=== PATIENT | female | born 1960 | race Caucasian/White ===

== ENCOUNTER → 2017-09-06 | Outpatient (CLI) | payer MEDICAID | LOC: CIMAGING 11:45 | PROVIDERS: ATTEND Family Medicine | DX: M25.562 Pain in left knee (principal); R42 Dizziness and giddiness; F95.9 Tic disorder, unspecified; G25.0 Essential tremor; S09.90XA Unspecified injury of head, initial encounter | CPT/HCPCS: 73564-PO ==

== ENCOUNTER → 2017-10-14 | Outpatient (CLI) | payer MEDICAID ==
--- NOTE | 2017-10-18 11:31 | CPEEG ---
[f rep st] ELECTROENCEPHALOGRAM DATE OF STUDY: 10/14/2017 INTERPRETATION: Essentially normal EEG during wakefulness and sleep. There were no potentially epil eptogenic abnormalities present during the recording. The background activity did contain prominent beta frequency activity. This can be a normal physiolo gic variant or related to medication effect (GABAergic medications). REPORT: This EEG contains 9-10 Hz alpha activity over the posterior head regions. There was promine nt beta frequency activity that was generalized in distribution throughout the study. There was no a bnormal activation at rest, during photic stimulation or hyperventilation. The patient did have inte rmittent drowsy bursts composed of generalized theta frequency activity, maximal over the anterior he ad regions. The patient went on to fall into a more sustained sleep during the study. There was no abnormal activation during drowsiness, sleep, or during times of arousal. /[id number]/MODL
== END ==
LOC: FCPNEURO 09:00
PROVIDERS: ATTEND Psychiatry & Neurology Neurology
DX: R40.1 Stupor (principal)

== ENCOUNTER 2018-01-26 08:24 | Day surgery (SDC) | payer MEDICAID ==
[2018-01-26] MEDS ORDERED: LIDOCAINE 1% 300 MG/30 ML SDV SC ONE (08:27)
--- NOTE | 2018-01-26 08:57 | PDHPUP ---
History & Physical Update H&P update statement: This history and physical update is based on an assessment of the patient which was completed after admission or registration (within 24 hours), but prior to the surgery/procedure. H&P update: H&P reviewed & patient examined, no change in patient's condition since H&P completed
--- NOTE | 2018-01-26 09:56 | CPIP ---
DATE OF PROCEDURE: 01/26/2018 REPORT TITLE: Implantation summary for [employer] Confirm. INDICATIONS: The patient is a pleasant 57-year-old female with a history of syncope. Previous outpa tient potline monitor was unrevealing. She is referred for implantation of a [employer] Confirm with a history of cryptogenic syncope. PROCEDURE: Implantation of a [facility] Confirm. TECHNIQUE: Following informed consent and in the fasting state, the patient was brought to the [facility]. The left chest was prepped and draped in usual sterile fashion. The 4th intercostal space was ident ified by landmarks. 2% lidocaine was infiltrated in the skin overlying the 4th intercostal space. A 1 cm incision was then made. The [facility] Confirm was then injected underneath the skin and the wou nd closed with 2 fran. There were no complications. DEVICE INFORMATION: The device is a [employer] Confirm, reference #[id number], serial #[id number]. COMPLICATIONS: None. DISPOSITION: The patient will be recovered in the CVC and discharged home later today. /[id number]/MODL
== END 2018-01-26 12:09 | disposition home or self-care (01) ==
LOC: FCATH 08:24
PROVIDERS: ATTEND Internal Medicine Cardiovascular Disease
PROC: 0JH632Z Insertion of Monitoring Device into Chest Subcutaneous Tissue and Fascia, Percutaneous Approach (ICD-10-PCS; principal; 2018-01-26)
DX: R55 Syncope and collapse (principal)
CPT/HCPCS: C1764

== ENCOUNTER 2018-03-28 10:22 | Emergency (ER) | payer MEDICAID ==
[2018-03-28] MEDS ORDERED: NS 1,000 ML IV ONE (10:53)
[2018-03-28] MEDS ORDERED: ONDANSETRON 4 MG/2 ML VIAL IVP ONE (10:53)
[2018-03-28] MEDS ORDERED: HYOSCYAMINE SULFATE 0.125 MG TAB PO ONE ×2 (12:14→12:43)
[2018-03-28] MEDS ORDERED: MAG HYDROX/AL HYDROX/SIMETH 30 ML UDCUP PO ONE (12:44)
--- NOTE | 2018-03-28 12:46 | EDPHY ---
H & P Stated Complaint: nausea, "upset stomach" for 1 week, feels constipated Time Seen by Provider: 03/28/18 10:43 HPI/ROS: This patient presents with GI complaints of crampy generalized abdominal pain associated with mild nausea and acid reflux symptoms described as belching followed by burning sensation in her esophagus. She also reports some constipation but is still able to have bowel movements. She admits some associated bloating in her belly and at times the discomfort peak sat 8/10 and sharp in nature. She is accompanied by her who brought her in for evaluation. She reports that the symptoms and worsening if she eats and notes no other exacerbating factors. ROS: Constitutional: No fevers or chills. HEENT: No URI symptoms Pulmonary: No cough shortness of breath Cardiovascular: No lightheadedness GI: She denies any dark tarry stools. No nausea vomiting. : No dysuria frequency urgency Integumentary: No rash or diaphoresis Psychiatric: She admits being under lot of stress during holidays and being more"busy"than normal 10 point review of symptoms is performed and otherwise negative with exception of pertinent positives and negatives listed in HPI and ROS Source: Patient Exam Limitations: No limitations - Medical/Surgical History Hx Diabetes: No Other PMH: central tremors, gerd, gall bladder - Social History Smoking Status: Never smoked Alcohol Use: None Drug Use: None - Physical Exam Exam: General Appearance: Alert, no distress. Eyes: Pupils equal and round no pallor or injection. ENT, Mouth: Mucous membranes moist. Respiratory: There are no retractions, lungs are clear to auscultation. Cardiovascular: Regular rate and rhythm. Gastrointestinal: Hyperactive bowel sounds, soft, generalized tenderness with that is mild. No guarding or rebound. No organomegaly. Back: No CVA tenderness Neurological: GCS 15. Skin: Warm and dry, no rashes. Musculoskeletal: Neck is supple nontender. Extremities are symmetrical, full range of motion. Psychiatric: Mood and affect are normal here today. DIFFERENTIAL DIAGNOSIS: After history and physical exam differential diagnosis was considered for constipation, IBS, food intolerance, diverticulitis, Constitutional: Initial Vital Signs Temperature (C) 36.4 C 03/28/18 10:31 Heart Rate 56 L 03/28/18 10:31 Respiratory Rate 18 03/28/18 10:31 Blood Pressure 175/78 H 03/28/18 10:31 O2 Sat (%) 98 03/28/18 10:31 O2 Delivery Mode Room Air Allergies/Adverse Reactions: acetaminophen [From Tylenol] Allergy (Verified 03/28/18 10:30) adhesive Allergy (Verified 03/28/18 10:29) latex Allergy (Verified 03/28/18 10:29) tuberculin, purified protein deriva [Tuberculin,Purif.Prot.Deriv.] Allergy ( Verified 03/28/18 10:29) bandaids Allergy (Uncoded 03/28/18 10:29) Home Medications: Medication Instructions Recorded Acidophilus 03/28/18 Hyoscyamine Sulfate [Levsin, 0.125 - 0.25 mg SL Q6 PRN #20 tab 03/28/18 Hyomax-Sl 0.125 mg (*)] Nexium 03/28/18 Ondansetron Odt [Zofran Odt] 4 - 8 mg PO Q4PRN PRN #4 tab 03/28/18 Propranolol HCl 03/28/18 Medical Decision Making ED Course/Re-evaluation: IV normal saline bolus Levsin sublingual and Toradol IV with relief of discomfort Studies: POC CBC-normal, i-STAT basic metabolic panel is normal, urinalysis is normal Discussion: Patient likely with IBS type symptoms associated with her stress. Counseled patient has been regarding this. No red flag findings today. We ruled out UTI. Doubt inflammatory condition given normal CBC and lack of fevers. Plan will be to go home with Levsin if needed for discomfort and treatment [id number] for mild constipation. She understands need to return should she develop any significant worsening despite treatment plan. - Data Points Medications Given: Discontinued Medications Al Hydroxide/Mg Hydroxide (Maalox Susp) 30 ml PO EDNOW ONE Stop: 03/28/18 12:45 Last Admin: 03/28/18 12:55 Dose: 30 ml Hyoscyamine Sulfate (Levsin, Hyomax-Sl) 0.125 mg PO EDNOW ONE Stop: 03/28/18 12:15 Last Admin: 03/28/18 12:26 Dose: 0.125 mg Hyoscyamine Sulfate (Levsin, Hyomax-Sl) 0.125 mg PO EDNOW ONE Stop: 03/28/18 12:44 Last Admin: 03/28/18 12:55 Dose: 0.125 mg Sodium Chloride (Ns) 1,000 mls @ 0 mls/hr IV EDNOW ONE; Wide Open PRN Reason: Protocol Stop: 03/28/18 10:54 Last Admin: 03/28/18 11:29 Dose: 1,000 mls Ondansetron HCl (Zofran) 4 mg IVP EDNOW ONE Stop: 03/28/18 10:54 Last Admin: 03/28/18 11:29 Dose: 4 mg Point of Care Test Results: CBC CBC Collection Date 03/28/18 CBC Collection Time 11:00 WBC 7.5 RBC 4.5 HGB 15.2 HCT 42.1 PLT 257 Neut # 5.4 Neut 72.7 LYMPH # 1.6 LYMPH 21.3 Other WBC # 0.5 Other WBC 6.0 MCV 93.6 Chemistry 03/28/18 03/28/18 11:54 11:06 POC Sodium 148 mEq/L H mEq/L 147 mEq/L H mEq/L (135-145) (135-145) POC Potassium 3.3 mEq/L mEq/L 3.2 mEq/L L mEq/L (3.3-5.0) (3.3-5.0) POC Chloride 103.0 mEq/L mEq/L 102.0 mEq/L mEq/L (97-110) (97-110) POC Total CO2 25 mEq/L mEq/L 25 mEq/L mEq/L (22-31) (22-31) POC BUN 13 mg/dL mg/dL 13 mg/dL mg/dL (7-23) (7-23) POC Creatinine 0.8 mg/dL mg/dL 0.8 mg/dL mg/dL (0.6-1.0) (0.6-1.0) POC Glucose 98 mg/dL mg/dL 102 mg/dL H mg/dL (70-100) (70-100) POC Calcium 9.8 mg/dL mg/dL 9.7 mg/dL mg/dL (8.5-10.4) (8.5-10.4) Urine Dip Collection Date 03/28/18 Collection Time 11:05 Specific Hawks (1.002-1.030) 1.020 PH (5.0-7.5) 6.0 Leukocytes (Negative) Negative Nitrites (Negative) Negative Protein (Negative) Negative Glucose (Negative) Negative Ketones (Negative) Negative Urobilnogen (0.2-1.0 EU) 0.2 Bilirubin (Negative) Negative Blood (Negative) Negative Departure - Departure Disposition: Home, Routine, Self-Care Clinical Impression: Generalized abdominal cramping Condition: Good Instructions: Acute Abdominal Pain (DC) Additional Instructions: Diagnosis: Generalized crampy abdominal pain 2. Nausea Plan: Levsin if needed for crampy discomfort Craig diet to feel improved Mild exercise to diminish stress Daily relaxation such as hot bath Maalox in addition as needed Zofran for nausea if needed Follow up primary care physician for any ongoing symptoms Return for any significant worsening despite treatment plan Referrals: Fany Whitfield MD [Primary Care Provider] - As per Instructions Prescriptions: Hyoscyamine Sulfate [Levsin, Hyomax-Sl 0.125 mg (*)] 0.125 - 0.25 mg SL Q6 PRN # 20 tab PRN Reason: abdominal cramping Ondansetron Odt [Zofran Odt] 4 - 8 mg PO Q4PRN PRN #4 tab PRN Reason: Vomiting
[2018-03-28 12:47] VITALS: BP 121/75
== END 2018-03-28 13:06 | disposition home or self-care (01) ==
LOC: CED 10:22
DX: R10.0 Acute abdomen (principal); R11.0 Nausea; K21.9 Gastro-esophageal reflux disease without esophagitis; E86.9 Volume depletion, unspecified
CPT/HCPCS: 80048-PO; 96374; J2405

== ENCOUNTER 2018-07-25 06:23 | Emergency (ER) | payer MEDICAID ==
[2018-07-25] MEDS ORDERED: HYDROmorphONE/DILAUDID 2 MG/ML INJ IVP ONE (06:57)
[2018-07-25] MEDS ORDERED: NS 1,000 ML IV ONE (06:57)
--- NOTE | 2018-07-25 06:59 | EDPHY ---
H & P Stated Complaint: ABD PAIN, CRAMPING, BLOODY STOOL BRIGHT RED Time Seen by Provider: 07/25/18 06:47 HPI/ROS: CHIEF COMPLAINT: Abdominal pain and cramping and now blood in stool HISTORY OF PRESENT ILLNESS: The patient is a 57-year-old female who states that she has had about 10 days worth of abdominal cramping and constipation. Today she noticed bright red blood per rectum. She has had hemorrhoids in the past. She states that it is painful to defecate. No urinary complaints. No vaginal complaints. No fevers. No nausea or vomiting. Severity: Moderate Modifying factors: None REVIEW OF SYSTEMS: Constitutional: denies: chills, fever, recent illness, recent injury EENTM: denies: blurred vision, double vision, nose congestion Respiratory: denies: cough, shortness of breath Cardiac: denies: chest pain, irregular heart rate, lightheadedness, palpitations Gastrointestinal/Abdominal: See HPI Genitourinary: denies: dysuria, frequency, hematuria, pain Musculoskeletal: denies: joint pain, muscle pain Skin: denies: lesions, rash, jaundice, bruising Neurological: denies: headache, numbness, paresthesia, tingling, dizziness, weakness Hematologic/Lymphatic: denies: blood clots, easy bleeding, easy bruising Immunologic/allergic: denies: HIV/AIDS, transplant 10 systems reviewed and negative except as noted EXAM: GENERAL: Well-appearing, well-nourished and in no acute distress. HEAD: Atraumatic, normocephalic. EYES: Pupils equal round and reactive to light, extraocular movements intact, sclera anicteric, conjunctiva are normal. ENT: TMs normal, nares patent, oropharynx clear without exudates. Moist mucous membranes. NECK: Normal range of motion, supple without lymphadenopathy or JVD. LUNGS: Breath sounds clear to auscultation bilaterally and equal. No wheezes rales or rhonchi. HEART: Regular rate and rhythm without murmurs, rubs or gallops. ABDOMEN: Soft, nontender, normoactive bowel sounds. No guarding, no rebound. No masses appreciated. : Anoscope performed, maroon color clot and stool and internal hemorrhoid at about 6:00 o'clock. Not currently bleeding. BACK: No CVA tenderness, no spinal tenderness, step-offs or deformities EXTREMITIES: Normal range of motion, no pitting or edema. No clubbing or cyanosis. NEUROLOGICAL: Cranial nerves II through XII grossly intact. Normal speech, normal gait. 5/5 strength, normal movement in all extremities, normal sensation , normal reflexes PSYCH: Normal mood, normal affect. SKIN: Warm, dry, normal turgor, no visible rashes or lesions. 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 - Family History Significant Family History: No pertinent family hx - Social History Smoking Status: Never smoked Alcohol Use: None Constitutional: Initial Vital Signs Temperature (C) 36.3 C 07/25/18 06:26 Heart Rate 65 07/25/18 06:26 Respiratory Rate 16 07/25/18 06:26 Blood Pressure 126/85 H 07/25/18 06:26 O2 Sat (%) 97 07/25/18 06:26 O2 Delivery Mode Room Air Allergies/Adverse Reactions: acetaminophen [From Tylenol] Allergy (Verified 03/28/18 10:30) adhesive Allergy (Verified 03/28/18 10:29) latex Allergy (Verified 03/28/18 10:29) tuberculin, purified protein deriva [Tuberculin,Purif.Prot.Deriv.] Allergy ( Verified 03/28/18 10:29) bandaids Allergy (Uncoded 03/28/18 10:29) Home Medications: Medication Instructions Recorded Acidophilus 03/28/18 Hyoscyamine Sulfate [Levsin, 0.125 - 0.25 mg SL Q6 PRN #20 tab 03/28/18 Hyomax-Sl 0.125 mg (*)] Nexium 03/28/18 Ondansetron Odt [Zofran Odt] 4 - 8 mg PO Q4PRN PRN #4 tab 03/28/18 Propranolol HCl 03/28/18 Amoxicillin/Clavulanate Pot 875 mg PO BID #20 tab 07/25/18 [Augmentin 875Mg] Medical Decision Making - Diagnostics Imaging: Discussed imaging studies w/ at home independent call center agent Radiologist ED Course/Re-evaluation: Patient has mild diverticulitis on CT scan. We discussed treatment for this with Augmentin as well as for the small hemorrhoid. We discussed diet and over- the-counter constipation medication. She and her feel comfortable with this plan and are eager to go home. Her abdominal exam remains benign. She declines pain medication prescription. Differential Diagnosis: Partial list of the Differential diagnosis considered include but were not limited to; constipation, diverticulitis, hemorrhoid and although unlikely based on the history and physical exam, I also considered colitis, fissure, cancer. I discussed these differential diagnoses and the plan with the patient as well as the usual and expected course. The patient understands that the diagnosis is provisional and that in medicine we are not always correct and that further workup is often warranted. Usual and customary warnings were given. All of the patient's questions were answered. The patient was instructed to return to the emergency department should the symptoms at all worsen or return, otherwise to followup with the physician as we discussed. - Data Points Laboratory Results: Laboratory Results 07/25/18 06:48 07/25/18 06:48 Medications Given: Discontinued Medications Amoxicillin/Clavulanate Potassium (Augmentin 875mg) 875 mg PO EDNOW ONE PRN Reason: Protocol Stop: 07/25/18 08:32 Last Admin: 07/25/18 08:34 Dose: 875 mg Hydromorphone HCl (Dilaudid) 0.5 mg IVP EDNOW ONE Stop: 07/25/18 06:58 Last Admin: 07/25/18 07:03 Dose: 0.5 mg Sodium Chloride (Ns) 1,000 mls @ 0 mls/hr IV EDNOW ONE; Wide Open PRN Reason: Protocol Stop: 07/25/18 06:58 Last Admin: 07/25/18 07:03 Dose: 1,000 mls Departure - Departure Disposition: Home, Routine, Self-Care Clinical Impression: Diverticulitis large intestine w/o perforation or abscess w/bleeding Condition: Fair Instructions: Diverticulitis (ED), Diverticulitis Diet (ED) Referrals: Soal Chadwick DO [Primary Care Provider] - As per Instructions Prescriptions: Amoxicillin/Clavulanate Pot [Augmentin 875Mg] 875 mg PO BID #20 tab
[2018-07-25 07:10] LABS: PLATELET COUNT 391 10^3/uL (150-400)
[2018-07-25] MEDS ORDERED: IOPAMIDOL (ISOVUE-300) 100 ML BTL ONE (07:31)
[2018-07-25] MEDS ORDERED: AMOXICILLIN/CLAVULANATE POT 875/125 MG TAB PO ONE (08:31)
[2018-07-25 08:40] VITALS: BP 112/68
== END 2018-07-25 08:46 | disposition home or self-care (01) ==
PROC: 0DJD8ZZ Inspection of Lower Intestinal Tract, Via Natural or Artificial Opening Endoscopic (ICD-10-PCS; principal; 2018-07-25)
DX: K57.32 Diverticulitis of large intestine without perforation or abscess without bleeding (principal); K64.8 Other hemorrhoids; E86.9 Volume depletion, unspecified
CPT/HCPCS: 96374; J1170; Q9967

== ENCOUNTER 2018-07-29 08:50 | Inpatient (IN) | payer MEDICAID ==
[2018-07-29] MEDS ORDERED: NS 1,000 ML IV ONE (09:20)
[2018-07-29 10:27] LABS: PLATELET COUNT 329 10^3/uL (150-400)
[2018-07-29] MEDS ORDERED: IOPAMIDOL (ISOVUE-300) 100 ML BTL ONE (11:15)
[2018-07-29] MEDS ORDERED: levOFLOXACIN 500 MG/DEXTROSE 100 ML IV ONE (12:34)
[2018-07-29] MEDS ORDERED: HYDROmorphONE/DILAUDID 2 MG/ML INJ IVP ONE (12:34)
[2018-07-29] MEDS ORDERED: HYDROmorphONE/DILAUDID 2 MG TAB PO PRN (13:31)
[2018-07-29] MEDS ORDERED: ACETAMINOPHEN 325 MG TAB PO PRN (13:31)
[2018-07-29] MEDS ORDERED: ONDANSETRON DISINTEGRATING 4 MG TAB PO PRN (13:31)
[2018-07-29] MEDS ORDERED: ONDANSETRON 4 MG/2 ML VIAL IVP PRN (13:31)
[2018-07-29] MEDS: NS 1,000 ML IV SCH (13:45)
[2018-07-29] MEDS ORDERED: PANTOPRAZOLE SODIUM 40 MG TAB PO SCH (13:45)
--- NOTE | 2018-07-29 13:59 | GHP ---
[f rep st] HISTORY AND PHYSICAL DATE OF ADMISSION: 07/29/2018 CHIEF COMPLAINT: Abdominal pain. HISTORY OF PRESENT ILLNESS: The patient is a 57-year-old female, who presented to the Emergency Room approximately 4 days prior with complaints of abdominal pain and cramping. She was evaluated via CT scan and diagnosed with diverticulitis. She was discharged home on oral Augmentin. Since that time , the patient has had some continued abdominal pain, as well as underlying mild nausea. She has not been able to tolerate regular food and does not feel as though she is improving. She presented to [facility] Emergency Room today with continued complaints. She denies any urinary complaints. She denies any vomiting. She denies any chest pain, dyspnea, or shortness of breath. REVIEW OF SYSTEMS: Comprehensive 10-point review of systems is negative other than noted in the HPI. PAST MEDICAL HISTORY: 1. Essential tremor. 2. Gastroesophageal reflux disease. 3. Episode of syncope. PAST SURGICAL HISTORY: Cholecystectomy. FAMILY HISTORY: Non-pertinent. SOCIAL HISTORY: The patient denies any tobacco or alcohol use. ALLERGIES: Tylenol, adhesive, latex, Band-Aids, tuberculin. PHYSICAL EXAM: GENERAL: The patient is alert, no acute distress. VITAL SIGNS: Afebrile at 36.8, p ulse 54, respiratory rate 16, blood pressure is 123/86. She is saturating 95% on room air. HEENT: Normocephalic, atraumatic. Mucosal membranes are moist. Pupils equal, round, reactive to light. NE CK: Supple. RESPIRATORY: Lungs are clear to auscultation bilaterally. No rhonchi or wheezes noted . CARDIOVASCULAR: Regular rate and rhythm. No gallop or murmur appreciated. GASTROINTESTINAL: Ab domen, bowel sounds are positive. Soft. No guarding or rigidity identified. SKIN: Without rashes or lesions. EXTREMITIES: Within normal limits. There is no clubbing or cyanosis noted. NEUROLOGIC : The patient is focally intact. MEDICATIONS: 1. Acidophilus. 2. Nexium. 3. Propranolol. LABORATORY: Within normal limits. IMAGING: CT of the abdomen notes persistent mild acute diverticulitis with no abscesses or obstructi on identified. ASSESSMENT/PLAN: The patient is a 57-year-old female with complaints of continued abdominal pain and discomfort. Was evaluated and diagnosed with: 1. Acute diverticulitis. She did fail outpatient Augmentin, and has been now transitioned to IV Fla gyl and Levaquin. We will continue this in the hospital setting. 2. Pain. Dilaudid has been ordered for the patient for subsequent pain medication. 3. Gastroesophageal reflux disease. Will continue Protonix for her during this hospitalization. 4. Disposition. She will be admitted under observation status. There is potential that the patient could leave in the next 24 hours if her condition improves. /[id number]/MODL
--- NOTE | 2018-07-29 14:14 | EDPHY ---
H & P Stated Complaint: abd pain - Personal History Current Tetanus/Diphtheria Vaccine: Yes Current Tetanus Diphtheria and Acellular Pertussis (TDAP): Yes - Medical/Surgical History Hx Asthma: No Hx Chronic Respiratory Disease: No Hx Diabetes: No Hx Cardiac Disease: No Hx Renal Disease: No Hx Cirrhosis: No Hx Alcoholism: No Hx HIV/AIDS: No Hx Splenectomy or Spleen Trauma: No Other PMH: Essential tremors, gerd, gall bladder removed, implanted HEART MONITOR, diverticulitis, d and c - Social History Smoking Status: Never smoked Time Seen by Provider: 07/29/18 09:19 HPI/ROS: Chief complaint: Abdominal pain History of present illness: This is a 57-year-old female who returns to the emergency department for abdominal pain. She was seen a few days ago in this emergency department and diagnosed with diverticulitis. She was started on Augmentin. She has been taking her Augmentin at home as prescribed but states symptoms persist. She continues to feel unwell. She is having difficulty eating and drinking now. She denies fevers. She denies nausea, vomiting or blood in the stools. She denies urinary symptoms. Review of systems: A 10 point review of systems was obtained and other than described above was negative. (Kong Cole) - Physical Exam Exam: General Appearance: Alert, nontoxic. Eyes: Pupils equal and round no pallor or injection. ENT, Mouth: Mucous membranes moist. Respiratory: There are no retractions, lungs are clear to auscultation. Cardiovascular: Regular rate and rhythm. Gastrointestinal: Bowel sounds present. Abdomen is soft but tender especially in the left lower quadrant. Neurological: Alert and oriented. Skin: Warm and dry, no rashes. Musculoskeletal: Extremities are symmetrical, full range of motion. Psychiatric: Patient is oriented X 3, there is no agitation. (Kong Cole) Constitutional: Initial Vital Signs Temperature (C) 36.3 C 07/29/18 09:05 Heart Rate 50 L 07/29/18 09:05 Respiratory Rate 16 07/29/18 09:05 Blood Pressure 127/84 H 07/29/18 09:05 O2 Sat (%) 97 07/29/18 09:05 O2 Delivery Mode Room Air Allergies/Adverse Reactions: acetaminophen [From Tylenol] Allergy (Verified 07/29/18 13:16) "just intolerant" adhesive Allergy (Verified 07/29/18 13:16) Skin Boils latex Allergy (Verified 07/29/18 13:16) Skin Boils tuberculin, purified protein deriva [Tuberculin,Purif.Prot.Deriv.] Allergy ( Verified 07/29/18 09:05) bandaids Allergy (Uncoded 07/29/18 13:16) Skin Boils Home Medications: Medication Instructions Recorded Esomeprazole Mag Trihydrate 40 mg PO DAILY 03/28/18 [Nexium] Herbals/Supplements -Info Only 1 ea PO DAILY 03/28/18 Propranolol HCl [Inderal 40mg (*)] 40 mg PO TID 03/28/18 Amoxicillin/Clavulanate Pot 875 mg PO BID #20 tab 07/25/18 [Augmentin 875Mg] Naproxen Sodium [Aleve 220 MG (*)] 220 mg PO BID PRN 07/29/18 Medical Decision Making - Diagnostics Imaging: Discussed imaging studies w/ order desk caller Radiologist ED Course/Re-evaluation: Patient is discussed with my secondary supervising physician Dr. Mini Rivera. Patient presents for ongoing pain in the setting of a recent diagnosis of diverticulitis. New CT scan does not show worsening of symptoms or complications such as abscess or perforation. However she appears to be feeling home therapy on oral Augmentin. She has been IV hydrated. She has been started on IV Levaquin and Flagyl. She is admitted to the hospitalist service for further evaluation and care. (Kong Cole) The patient was evaluated and managed by the physician child development assistant. I have reviewed this chart and I agree with the findings and plan of care as documented , as indicated by my signature. I am the secondary supervising physician. ( Mini Rivera) Differential Diagnosis: Included but not limited to diverticulitis, abscess formation, perforation, colitis (Kong Cole) - Data Points Laboratory Results: Laboratory Results 07/29/18 10:05 07/29/18 10:05 Medications Given: Sodium Chloride (Ns) 1,000 mls @ 75 mls/hr IV CONT ANNA Stop: 01/25/19 13:44 Last Admin: 07/30/18 05:20 Dose: 1,000 mls Metronidazole/Sodium Chloride (Flagyl 500 Mg (Premix)) 100 mls @ 100 mls/hr IV Q8HRS ANNA PRN Reason: Protocol Stop: 08/28/18 21:59 Last Admin: 07/30/18 05:14 Dose: 100 mls Levofloxacin/Dextrose (Levaquin 750 Mg (Premix)) 150 mls @ 100 mls/hr IV DAILY ANNA PRN Reason: Protocol Stop: 08/29/18 08:59 Last Admin: 07/30/18 08:14 Dose: 150 mls Oxycodone HCl (Oxycodone Ir) 5 mg PO Q4 PRN PRN Reason: Pain, Severe Able to Take PO Stop: 08/08/18 15:07 Last Admin: 07/30/18 08:13 Dose: 5 mg Pantoprazole Sodium (Protonix) 40 mg PO DAILY ANNA Stop: 01/26/19 08:59 Last Admin: 07/30/18 08:13 Dose: 40 mg Propranolol HCl (Inderal) 40 mg PO TID [facility] Stop: 01/25/19 15:59 Last Admin: 07/30/18 08:12 Dose: 40 mg Discontinued Medications Hydromorphone HCl (Dilaudid) 0.5 mg IVP EDNOW ONE Stop: 07/29/18 12:35 Last Admin: 07/29/18 12:42 Dose: 0.5 mg Sodium Chloride (Ns) 1,000 mls @ 0 mls/hr IV EDNOW ONE; Wide Open PRN Reason: Protocol Stop: 07/29/18 09:21 Last Admin: 07/29/18 10:12 Dose: 1,000 mls Levofloxacin/Dextrose (Levaquin 500 Mg (Premix)) 100 mls @ 100 mls/hr IV EDNOW ONE PRN Reason: Protocol Stop: 07/29/18 13:33 Last Admin: 07/29/18 12:41 Dose: 100 mls Metronidazole/Sodium Chloride (Flagyl 500 Mg (Premix)) 100 mls @ 100 mls/hr IV EDNOW ONE PRN Reason: Protocol Stop: 07/29/18 13:33 Last Admin: 07/29/18 13:48 Dose: 100 mls Pantoprazole Sodium (Protonix) 40 mg PO DAILY [facility] Stop: 07/29/18 23:59 Last Admin: 07/29/18 15:26 Dose: 40 mg Departure - Departure Disposition: [facility] Clinical Impression: Diverticulitis Condition: Fair
[2018-07-29] MEDS ORDERED: OXYCODONE/APAP 5/325 TAB PO PRN (14:53)
[2018-07-29] MEDS ORDERED: NAPROXEN SODIUM 220 MG TAB PO PRN (14:53)
[2018-07-29] MEDS ORDERED: oxyCODONE IR 5 MG TAB PO PRN (15:08)
[2018-07-29] MEDS: oxyCODONE IR 5 MG TAB PO PRN (15:32)
[2018-07-29] MEDS: PROPRANOLOL HCL 40 MG TAB PO SCH ×2 (15:33→22:03)
[2018-07-30] MEDS: NS 1,000 ML IV SCH ×2 (05:20→22:13)
[2018-07-30] MEDS: PROPRANOLOL HCL 40 MG TAB PO SCH ×3 (08:12→22:12)
[2018-07-30] MEDS: oxyCODONE IR 5 MG TAB PO PRN (08:13)
[2018-07-30] MEDS: PANTOPRAZOLE SODIUM 40 MG TAB PO SCH (08:13)
[2018-07-30] MEDS ORDERED: Herbals/Supplements -Info Only PO SCH (09:00)
[2018-07-30] MEDS ORDERED: levOFLOXACIN 500 MG/DEXTROSE 100 ML IV SCH (09:00)
--- NOTE | 2018-07-30 14:13 | HOSPPROG ---
Hospitalist Progress Note Assessment/Plan: 57 year old female admitted with acute diverticulitis after failiing outpatient treatment Diverticulitis, acute- I reviewed the CT scan which shows acute diverticulitis. Patient still with substantial pain and nausea. Not able to take po adequately today. vitals remain wnl. -cont intravenous abx -cont intravenous saline -cont IV pain medications (if po faile) Pain- due to diverticulitis. Patient says she cannot tolerate PO. cont PRN analgesics. GERD- cont PPi dispo- change to inaptient as patient is still requiring IV hydration, antibiotics and medications and cannot tolerate PO Subjective: abdomen hurts. not able to eat or drink, still with nv. Objective: Vital Signs Temp Pulse Resp BP Pulse Ox 36.7 C 58 L 16 109/66 95 07/30/18 11:30 07/30/18 11:30 07/30/18 11:30 07/30/18 11:30 07/30/18 11:30 07/29/18 07/30/18 07/31/18 05:59 05:59 05:59 Intake Total 1375 Balance 1375 - Physical Exam Constitutional: no apparent distress, appears nourished, not in pain Eyes: PERRL, anicteric sclera, EOMI Ears, Nose, Mouth, Throat: moist mucous membranes, hearing normal, ears appear normal, no oral mucosal ulcers Cardiovascular: regular rate and rhythym, no murmur, rub, or gallop Respiratory: no respiratory distress, no rales or rhonchi, clear to auscultation Gastrointestinal: normoactive bowel sounds, soft, non-tender abdomen, no palpable masses Genitourinary: no bladder fullness, no bladder tenderness, no renal bruits Skin: no rashes or abrasions, no fluctuance, no induration Musculoskeletal: full muscle strength, no muscle tenderness, normal joint ROM Neurologic: AAOx3, sensation intact bilaterally Psychiatric: interacting appropriately, not anxious, not encephalopathic, thought process linear Lymph, Heme, Immunologic: no cervical LAD, no supraclavicular LAD ICD10 Worksheet Patient Problems: Problems Problem Status Onset Diverticulitis Acute
--- NOTE | 2018-07-30 15:24 | PDMN ---
Medical Necessity Medical necessity: Change to IP, as of 07/30/18, per MD & MCG M-150; los >2 mn for ongoing management of acute diverticulitis w/failed outpatient tx, inability to maintain po, pain & nausea; requiring IV abx, IVFs & pain management
--- NOTE | 2018-07-30 15:50 | ASMTCMCOM ---
CM Note CM Note Notes: Reviewed chart, pt admitted for abdominal pain. Pt recently at ER for diverticulitis, returned when unable to eat or adequately drink. Pt lives at home w/, no therapies ordered. Anticipate she will dc home with support of when medically stable. CM available for any changes. DC Plan: Independent Date Signed: 07/30/2018 03:50 PM Electronically Signed By:Domitila Andres RN
[2018-07-31] MEDS: PROPRANOLOL HCL 40 MG TAB PO SCH (08:24)
[2018-07-31] MEDS: PANTOPRAZOLE SODIUM 40 MG TAB PO SCH (08:24)
--- NOTE | 2018-07-31 11:40 | ASMTCMCOM ---
CM Note CM Note Notes: CM discussed with Jose VALDOVINOS and hospitalist, patient possibly discharging home independent today with support from . Patient received discharge orders, CM met with patient and who will transport patient home. CM gave [facility] flier the patient has PCP and will follow up as recommended. CM available to follow if any CM/DC plans arise. Date Signed: 07/31/2018 11:39 AM Electronically Signed By:Shruthi Paulino
[2018-07-31 12:09] VITALS: BP 111/71
--- NOTE | 2018-07-31 12:15 | PDDCSUM ---
Discharge Summary Discharge Summary: Discharge diagnosis Acute sigmoid diverticulitis Abdominal pain Nausea vomiting GERD The patient initially presented the emergency room for acute abdominal pain along with nausea and vomiting. She had been diagnosed in the outpatient setting with diverticulitis and started on Augmentin. Her symptoms persisted and she was unable to tolerate p. O. And so and came to the emergency room. A CT scan of her abdomen in the ER showed acute sigmoid diverticulitis. She was started on Levaquin and Flagyl, made NPO and given medications for pain along with fluid resuscitation. She responded well and after 2 days was able to be transitioned back to her regular diet. She was transitioned to oral antibiotics and discharged home to complete a course of 10 days of Levaquin and Flagyl for an acute sigmoid diverticulitis. She was instructed to follow up with primary care physician for further evaluation and management. Disposition Home independent new medications Levofloxacin 750 mg daily Flagyl 500 mg three times daily. I spent over 30 min on the discharge of this patient
[2018-07-31] MEDS ORDERED: metroNIDAZOLE 500 MG TAB PO SCH ×3 (13:25→14:00)
== END 2018-07-31 14:10 | disposition home or self-care (01) | DRG 244 ==
LOC: INTOOBSV 12:36 → F3E 13:08 → OBSVTOIN 07-30 13:52
PROVIDERS: ADMIT Family Medicine; ATTEND Family Medicine
DX: K57.32 Diverticulitis of large intestine without perforation or abscess without bleeding (principal); E86.9 Volume depletion, unspecified; K21.9 Gastro-esophageal reflux disease without esophagitis; G25.0 Essential tremor
CPT/HCPCS: 96365; G0378; J1170; J1956; Q9967

== ENCOUNTER 2018-08-30 09:30 | Observation (INO) | payer MEDICAID ==
[2018-08-30] MEDS ORDERED: DIAZEPAM 5 MG TAB PO ONE (09:33)
[2018-08-30] MEDS ORDERED: BACITRACIN IRRIGATION/NS 50,000 UNITS/1,000 ML BTL IRR ONE (09:33)
[2018-08-30] MEDS ORDERED: diphenhydrAMINE 25 MG CAP PO ONE (09:33)
[2018-08-30] MEDS ORDERED: ceFAZolin 2 GM/DEXTROSE 100 ML IV ONE (09:33)
[2018-08-30] MEDS ORDERED: NS 1,000 ML IV ONE (09:33)
[2018-08-30 10:15] LABS: PLATELET COUNT 257 10^3/uL (150-400)
[2018-08-30 10:27] LABS: INR 0.89 (0.83-1.16); PROTIME(PATIENT) 11.7 SEC (12.0-15.0)
[2018-08-30] MEDS ORDERED: BUPIVACAINE 0.5% 30 ML SDV ONE (11:00)
[2018-08-30] MEDS ORDERED: fentaNYL 100 MCG/2 ML INJ ONE ×2 (11:00→12:52)
[2018-08-30] MEDS ORDERED: LIDO/EPI 1% **for epidural** 30 ML SDV ONE (11:00)
[2018-08-30] MEDS ORDERED: IOPAMIDOL (ISOVUE-300) 50 ML VIAL ONE (11:00)
[2018-08-30] MEDS ORDERED: MIDAZOLAM 2 MG/2 ML VIAL ONE ×2 (11:00→12:53)
[2018-08-30] MEDS ORDERED: LIDOCAINE 1% 5 ML SDV ONE (11:01)
--- NOTE | 2018-08-30 11:12 | PDPROPOC ---
Sedation Plan of Care Sedation Plan of Care: vital signs stable, mental status noted, patient educated of risks, benefits, alternatives, patient can tolerate sedation ASA Classification: ASA 2 Planned drugs: fentanyl, midazolam Mallampati Score: Class 1 Mallampati Reference Image: Patient passed 3-3-2 rule?: Yes
[2018-08-30] MEDS ORDERED: NAPROXEN SODIUM 220 MG TAB PO PRN (13:09)
--- NOTE | 2018-08-30 15:41 | CPIP ---
[f rep st] INVASIVE CARDIAC PROCEDURE DATE OF PROCEDURE: 08/30/2018 INDICATIONS: The patient is 57 years old. She has a history of syncope, currently with a [employer] LINQ in place that has documented episodes of complete heart block and Mobitz type 2 second-degree AV block. PROCEDURE: Implantation of a dual-chamber pacemaker. TECHNIQUE: Following informed consent, the patient was brought to cardiac catheterization laboratory in a fasting state. The left chest was prepped and draped in the usual sterile fashion. A venogram was performed, identifying a widely patent axillary subclavian system. 2% lidocaine was infiltrated in the skin below the left clavicle. A #10 blade was used to make a 3 cm incision, and the pacemake r pocket was fashioned using blunt dissection. All bleeders were cauterized and an antibiotic-soaked sponge was placed in the pocket. Using the modified Seldinger technique, access was gained to the a xillary vein at the level of the first rib. Two individual 0.035 J-wires were then positioned. Usin g the first of these J-wires, a 6-[place] sheath was placed. This allowed us to pass a right ventricu lar lead into the right ventricular apex. The lead was screwed into place and the sheath torn away. The lead was tested with excellent capture and sensing. The lead was then secured to the pacemaker pocket floor using 0 Ethibond. Using the remaining J-wire, a second 6-[place] sheath was placed. The atrial lead was brought to the field. The lead was passed under fluoroscopic guidance into the [facility] t atrial appendage and screwed into place and tested. Excellent capture and sensing were noted in th e sheath was torn away. The lead was then secured to the pacemaker pocket floor using 0 Ethibond. A t this point, the antibiotic-soaked sponge was removed from the pocket, and the pocket was irrigated with an antibiotic-containing solution. The device was brought to the field, and both leads were adair ntified by serial number and affixed to the header according to deboning team leader guidelines. The device and the redundant portions of both leads were then placed in the pocket. The pocket was then closed in 3 layers using 2 layers of interrupted suture using 2-0 and 3-0 Vicryl and running Stratafix for t he skin. Steri-Strips and a dry dressing were applied. DEVICE INFORMATION: The pacemaker is a [employer] Medical Assurity MRI-compatible device, reference [place] [id number], serial #[id number]. The atrial lead is a [employer] Medical Tendril SDX, reference number 20 88TC, 46 cm in length, serial number [id number]. In the ventricle, the pacemaker lead is a Tendril SD X, 2088TC, 52 cm lead, serial number [id number]. In the atrium, capture was 1.2 V at 1 msec with a le ad impedance of 614 ohms and sensed P waves of 2.8 mV. In the ventricle, capture was 0.4 V, 0.5 msec , lead impedance of 700 ohms and a sensed R-wave of 14.3 mV. COMPLICATIONS: None. DISPOSITION: The patient will be transferred to the CVC recovery. She will be admitted and monitore d overnight. I anticipate she will be discharged home in the morning. /[id number]/MODL
[2018-08-30] MEDS ORDERED: HYDROCORTISONE 1% CREAM TP PRN (15:49)
[2018-08-30] MEDS ORDERED: PROPRANOLOL HCL 40 MG TAB PO SCH (16:00)
[2018-08-30] MEDS: OXYCODONE/APAP 5/325 TAB PO PRN ×2 (16:25→20:48)
[2018-08-30] MEDS: PROPRANOLOL HCL 40 MG TAB PO SCH (20:48)
[2018-08-31] MEDS: OXYCODONE/APAP 5/325 TAB PO PRN (05:03)
[2018-08-31] MEDS: PROPRANOLOL HCL 40 MG TAB PO SCH (08:58)
[2018-08-31] MEDS ORDERED: PANTOPRAZOLE SODIUM 40 MG TAB PO SCH (09:00)
[2018-08-31 09:02] VITALS: BP 103/72
--- NOTE | 2018-08-31 11:08 | ASDISCHSUM ---
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 Comorbidities - select Answers: Opioid dependence all that apply / Chronic pain # of Emergency department Answers: 3-4 visits in the last 6 months Score: 7 Date Signed: 08/31/2018 11:06 AM Electronically Signed By:Erica Contreras Case Management Discharge Plan Note Case Management Discharge Discharge Order Complete? Answers: Yes Patient to Obtain Answers: via Family Medications Transportation Arranged Answers: Family/Friends Family Notified Answers: Yes Notes: Enrique is here Discharge Comments Notes: Pt is beig D/Cd independently to home today. No CM needs identified. will give her a ride home. Date Signed: 08/31/2018 11:07 AM Electronically Signed By:Erica Contreras Intervention Information
--- NOTE | 2018-08-31 11:53 | GDS ---
[f rep st] DISCHARGE SUMMARY ADMISSION DIAGNOSES: 1. Syncope. 2. Complete heart block. 3. Mixed hyperlipidemia. DISCHARGE DIAGNOSES: 1. History of syncope. 2. History of complete heart block. 3. Status post dual chamber permanent pacemaker implantation with atrial and ventricular leads, [employer] device. 4. Removal of loop recorder. 5. Mixed hyperlipidemia. PROCEDURES PERFORMED DURING HOSPITALIZATION: 1. Electrocardiogram. 2. Permanent pacemaker implantation, [employer] device, dual chamber with atrial and ventricular leads . 3. Loop recorder removal. 4. Chest x-ray. BRIEF HISTORY: Please see H and P, briefly the patient is a 57-year-old female with previous history of syncope. Due to this, she had a [employer] Confirm loop recorder implanted. It was noted during a recent interrogation of the device that she did experience episodes of complete heart block, also 2n d degree heart blocks type II. Due to this, and her past history, it was decided by her primary card iologist, Dr. Barboza, to have her have a pacemaker implanted. HOSPITAL COURSE: Patient was admitted through CVC, prepped for procedure, and taken to the cardiac c atheterization lab. There, Dr. Barboza implanted a [employer] pacemaker with atrial and ventricular lead s, no complications. At that point, the loop recorder was removed. No complications. Patient was t ransferred back to the CVC and ultimately to the PCU for overnight observation. Patient reports duri ng the night, she has been feeling well, she denies any lightheadedness near-syncope or syncopal even ts. Reporting no palpitations, denying any chest pain, shortness of breath. She has been up and wal josefa the unit without difficulties. PHYSICAL EXAMINATION: GENERAL APPEARANCE: Today, thin, well-groomed, female. She is aler t and oriented to person, place, time, and situation. She appears to be in no acute distress. VITAL SIGNS: Current vital signs are a blood pressure of 125/82, heart rate is 59, sinus rhythm, respirat ions 19 saturating 97% on room air. Temperature of 36.6 degrees Celsius. HEENT: Head is normocepha lic. Lips and tongue are pink and moist with no signs of cyanosis. Conjunctivae pink. NECK: Trach ea is midline. +2 carotid pulses bilateral. No auscultated bruits, no jugular vein distention. RES PIRATORY: Lungs are clear to auscultation. No rhonchi, rales, or wheezes. No accessory muscle use. No intercostal muscle retraction noted. CARDIAC: Regular rate, regular rhythm, S1, S2, no S3, S4, gallops, rubs, or murmurs noted. ABDOMEN: Soft, nontender. Bowel sounds x4 quadrants, no organome mariana, no palpable masses. SKIN: [place], warm, dry, no cyanosis, no clubbing, no peripheral edema. VA SCULAR: +2 carotids bilateral, +2 radials bilateral, +1 dorsal pedal and posterior tibial pulses rachel ateral. Pacemaker insertion site, left anterior chest, incision intact with Steri-Strips. No redness, swelli ng, drainage, ecchymosis, or hematoma. Dressing change done. Loop recorder insertion site, left ant erior chest incision intact with Steri-Strips. No redness, swelling, drainage, ecchymosis, or hemato ma. Dressing change done. LABORATORY STUDIES: Drawn today show a WBC of 5.32, hemoglobin 13.4, hematocrit of 39.5, platelet co unt of 192. Sodium 137, potassium 4.6, chloride 104, CO2 of 24, BUN 14, creatinine 0.8, glucose 92, calcium 9.2. STUDIES: Pacemaker implantation as mentioned above. Chest x-ray this morning showing no acute cardi opulmonary process , proper pacemaker implantation with no delayed pneumothorax. Electrocardiogram t ericka showing sinus rhythm, normal axis, with no significant ST or T-wave abnormalities. DISCHARGE DISPOSITION: Patient will be discharged home in stable condition. She is under activity r estrictions of not lifting more than 10 to 20 pounds with the left arm for the next 6 weeks, not lift ing left arm above shoulder height. DISCHARGE MEDICATIONS: Please see discharge med reconciliation sheet. DISCHARGE INSTRUCTIONS: Post pacemaker implantation discharge instructions went over with the patien t and her including activity restrictions with the left arm, monitoring for signs of infectio n, bleeding precautions, and medication compliancy. The patient has a followup appointment set up wi our device wound check nurse in approximately 1 week, she will also follow up with Dr. Barboza at at time. At the time of discharge, both patient and verbalized understanding of all instruct ions, have no questions or concerns. They were told that if any problems or concerns come up post di lauri, they are to notify our office or return to the hospital. Total time spent on discharge greater than 30 minutes. /[id number]/MODL
--- NOTE | 2018-09-02 11:46 | CPEKG ---
Test Reason : OPEN Blood Pressure : / mmHG Vent. Rate : 055 BPM Atrial Rate : 055 BPM P-R Int : 152 ms QRS Dur : 082 ms QT Int : 462 ms P-R-T Axes : 044 055 043 degrees QTc Int : 442 ms Sinus rhythm Borderline ST depression, lateral leads Confirmed by Ronaldo Ocampo ([id number]) on 09/02/2018 11:45:58 AM Referred By: Milton Barboza Confirmed By:Ronaldo Ocampo
--- NOTE | 2018-09-02 11:49 | CPEKG ---
Test Reason : OPEN Blood Pressure : / mmHG Vent. Rate : 062 BPM Atrial Rate : 061 BPM P-R Int : 155 ms QRS Dur : 081 ms QT Int : 433 ms P-R-T Axes : 016 054 045 degrees QTc Int : 440 ms Sinus rhythm Confirmed by Ronaldo Ocampo ([id number]) on 09/02/2018 11:49:05 AM Referred By: Milton Barboza Confirmed By:Ronaldo Ocampo
--- NOTE | 2018-09-02 11:55 | CPEKG ---
Test Reason : OPEN Blood Pressure : / mmHG Vent. Rate : 068 BPM Atrial Rate : 068 BPM P-R Int : 171 ms QRS Dur : 077 ms QT Int : 420 ms P-R-T Axes : 064 055 055 degrees QTc Int : 447 ms Sinus rhythm Confirmed by Ronaldo Ocampo ([id number]) on 09/02/2018 11:54:29 AM Referred By: Milton Barboza Confirmed By:Ronaldo Ocampo
== END 2018-08-31 11:28 | disposition home or self-care (01) ==
LOC: FCATH 09:30 → F2W 13:10
PROVIDERS: ADMIT Internal Medicine Cardiovascular Disease; ATTEND Internal Medicine Cardiovascular Disease
DX: I44.2 Atrioventricular block, complete (principal); E78.2 Mixed hyperlipidemia
CPT/HCPCS: 33208; 71045; 71046; 93005; G0378; C1785; C1898; J0690; J2250; J3010; Q9967